=== PATIENT | male | born 2000 | race Caucasian/White ===

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

== ENCOUNTER 2022-09-07 20:14 | Emergency (ER) | payer MEDICAID ==
[2022-09-07] MEDS ORDERED: Sodium Chloride 0.9% 10 ML Syringe FLUSH PRN (20:33)
[2022-09-07] MEDS ORDERED: Sodium Chloride 0.9% 2.5 ML Syringe FLUSH PRN (20:33)
[2022-09-07 21:03] LABS: BASOPHILS PERCENT AUTO 0.2 % (0.0-1.5); EOSINOPHILS ABSOLUTE AUTO 0.1 K/uL (0.0-0.7); HEMATOCRIT 45.6 % (38.0-50.0); HEMOGLOBIN 16.5 g/dL (13.0-17.0); LYMPHOCYTES ABSOLUTE AUTO 3.5 K/uL (0.6-2.4); LYMPHOCYTES PERCENT AUTO 28.8 % (16.0-40.0); MEAN CORPUSCULAR HGB CONC 36.2 g/dL (31.0-37.0); MEAN CORPUSCULAR VOLUME 85.6 fL (80.0-98.0); MONOCYTES ABSOLUTE AUTO 0.7 K/uL (0.0-0.8); MONOCYTES PERCENT AUTO 5.4 % (0.0-15.0); NEUTROPHILS ABSOLUTE AUTO 7.8 K/uL (1.4-5.7); NEUTROPHILS PERCENT AUTO 64.6 % (48.0-80.0); NRBC ABSOLUTE 0 K/uL; PLATELET COUNT,PLT 227 K/uL (150-400); RED BLOOD CELL COUNT 5.33 M/uL (4.50-5.90); WHITE BLOOD CELL COUNT,WBC 12.01 K/uL (4.0-11.0)
[2022-09-07 21:16] LABS: INR 1.12 (0.86-1.11); PTT,PARTIAL THROMBOPLSTIN TIME 28.5 SEC (23.9-30.7)
[2022-09-07 21:23] LABS: A/G RATIO 1.5 (0.9-1.6); ACETAMINOPHEN <2.0 ug/mL; ALANINE AMINOTRANSFERASE,ALT 28 IU/L (14-63); ALBUMIN 4.6 g/dL (3.4-5.0); ALKALINE PHOSPHATASE 75 U/L (46-116); ASPARTATE AMNIOTRANSFERASE,AST 20 IU/L (15-37); BILIRUBIN TOTAL 0.5 mg/dL (0.2-1.0); BLOOD UREA NITROGEN,BUN 10 mg/dL (7.0-18.0); CALCIUM 8.8 mg/dL (8.5-10.1); CARBON DIOXIDE,CO2 29.3 mmol/L (21.0-32.0); CHLORIDE,CL 102 mmol/L (98-107); CREATININE 1.3 mg/dL (0.8-1.3); EST CRCL DRUG DOSING (CG) 96.54 mL/min; GLUCOSE RANDOM 111 mg/dL (74-106); POTASSIUM,K 3.5 mmol/L (3.5-5.1); PROTEIN TOTAL,TP 7.6 g/dL (6.4-8.2); SALICYLATE 0.4 mg/dL (0.0-20.0); SODIUM,NA 140 mmol/L (136-148)
[2022-09-07 21:24] LABS: ESTIMATED GFR 81 mL/min (>60)
[2022-09-07] MEDS ORDERED: Ketorolac 30 MG/ML SDV IM ONE (21:51)
[2022-09-07] MEDS ORDERED: Metoclopramide 10 MG/2 ML SDV IM ONE (21:51)
== END 2022-09-07 22:31 | disposition home or self-care (01) ==
LOC: MW.ED 20:14
DX: G44.89 Other headache syndrome (principal); R00.2 Palpitations
CPT/HCPCS: 36415; 80053; 80143; 80179; 85025; 85610; 85730; 93005; 96372; 99285; J1885; J2765; 93010; 99283

== ENCOUNTER 2022-09-10 09:14 | Emergency (ER) | payer MEDICAID ==
[2022-09-10 10:38] LABS: BASOPHILS PERCENT AUTO 0.2 % (0.0-1.5); EOSINOPHILS ABSOLUTE AUTO 0.1 K/uL (0.0-0.7); EOSINOPHILS PERCENT AUTO 0.6 % (0.0-7.0); HEMATOCRIT 49.8 % (38.0-50.0); LYMPHOCYTES ABSOLUTE AUTO 2.3 K/uL (0.6-2.4); LYMPHOCYTES PERCENT AUTO 14.1 % (16.0-40.0); MEAN CORPUSCULAR HEMOGLOBIN 30.9 pg (27.0-32.0); MEAN CORPUSCULAR HGB CONC 36.1 g/dL (31.0-37.0); MEAN CORPUSCULAR VOLUME 85.4 fL (80.0-98.0); MONOCYTES ABSOLUTE AUTO 0.7 K/uL (0.0-0.8); MONOCYTES PERCENT AUTO 4.4 % (0.0-15.0); NEUTROPHILS PERCENT AUTO 80.7 % (48.0-80.0); NRBC ABSOLUTE 0 K/uL; PLATELET COUNT,PLT 254 K/uL (150-400); RED BLOOD CELL COUNT 5.83 M/uL (4.50-5.90); WHITE BLOOD CELL COUNT,WBC 16.05 K/uL (4.0-11.0)
[2022-09-10 11:12] LABS: A/G RATIO 1.5 (0.9-1.6); ACETAMINOPHEN <2.0 ug/mL; ALANINE AMINOTRANSFERASE,ALT 34 IU/L (14-63); ALBUMIN 5.1 g/dL (3.4-5.0); ALKALINE PHOSPHATASE 68 U/L (46-116); ASPARTATE AMNIOTRANSFERASE,AST 22 IU/L (15-37); BLOOD UREA NITROGEN,BUN 16 mg/dL (7.0-18.0); CALCIUM 9.6 mg/dL (8.5-10.1); CARBON DIOXIDE,CO2 24.1 mmol/L (21.0-32.0); CHLORIDE,CL 102 mmol/L (98-107); CREATININE 1.1 mg/dL (0.8-1.3); EST CRCL DRUG DOSING (CG) 114.09 mL/min; ESTIMATED GFR 99 mL/min (>60); ETHANOL BLOOD MEDICAL < 3.0 mg/dL; GLUCOSE RANDOM 101 mg/dL (74-106); POTASSIUM,K 4.3 mmol/L (3.5-5.1); PROTEIN TOTAL,TP 8.5 g/dL (6.4-8.2); SALICYLATE <0.2 mg/dL (0.0-20.0); SODIUM,NA 139 mmol/L (136-148); TSH ULTRASENSITIVE 0.75 uIU/mL (0.36-3.74)
[2022-09-10] MEDS ORDERED: LORazepam 1 MG Tab PO ONE (11:12)
[2022-09-10 11:39] LABS: APPEARANCE,URINE CLEAR; BILIRUBIN,URINE NEGATIVE (NEGATIVE); COLOR,URINE YELLOW; GLUCOSE,URINE NEGATIVE (NEGATIVE); KETONES,URINE NEGATIVE (NEGATIVE); LEUKOCYTE ESTERASE,URINE NEGATIVE (NEGATIVE); NITRITE,URINE NEGATIVE (NEGATIVE); OCCULT BLOOD,URINE NEGATIVE (NEGATIVE); PROTEIN,URINE NEGATIVE (NEGATIVE); UROBILINOGEN,URINE 0.2 EU/dL (<2.0)
[2022-09-10 11:47] LABS: AMPHETAMINES SCREEN, URINE NEGATIVE (CUTOFF=500); BARBITURATE SCREEN,URINE NEGATIVE (CUTOFF=200); BENZODIAZEPINES SCREEN,URINE NEGATIVE (CUTOFF=150); BUPRENORPHINE SCREEN,URINE NEGATIVE (CUTOFF=10); METHADONE SCREEN, URINE NEGATIVE (CUTOFF=200); METHAMPHETAMINES SCREEN, URINE NEGATIVE (CUTOFF=500); OXYCODONE SCREEN,URINE NEGATIVE (CUT0FF=100); PCP SCREEN,URINE NEGATIVE (CUTOFF=25); PROPOXYPHENE SCREEN,URINE NEGATIVE (CUTOFF=300); THC SCREEN,URINE 20 NG/ML PRESUMPTIVE POSITIVE (CUTOFF=50)
== END 2022-09-10 19:30 ==
LOC: MW.ED 09:14
DX: F41.9 Anxiety disorder, unspecified (principal); R45.851 Suicidal ideations
CPT/HCPCS: 36415; 80053; 80143; 80179; 80305; 80307; 81003; 84443; 85025; 93005; 99285; A9270; 93010

== ENCOUNTER 2023-01-03 23:58 | Emergency (ER) | payer SELFPAY ==
[2023-01-04] MEDS ORDERED: Aspirin 81 MG Tab.Chew PO ONE (00:08)
[2023-01-04] MEDS ORDERED: LORazepam 0.5 MG Tab PO ONE (00:16)
[2023-01-04 00:29] LABS: BASOPHILS ABSOLUTE AUTO 0.05 K/uL (0.00-0.20); BASOPHILS PERCENT AUTO 0.6 % (0.0-1.0); EOSINOPHILS ABSOLUTE AUTO 0.22 K/uL (0.00-0.45); EOSINOPHILS PERCENT AUTO 2.5 % (0.0-6.0); HEMATOCRIT 43.9 % (42.0-52.0); HEMOGLOBIN 16.2 g/dL (14.0-18.0); IMMATURE GRAN ABSOLUTE AUTO 0.03 K/uL (0.00-0.05); IMMATURE GRAN PERCENT AUTO 0.3 % (0.0-0.4); LYMPHOCYTES ABSOLUTE AUTO 3.25 K/uL (1.00-4.80); LYMPHOCYTES PERCENT AUTO 37.6 % (24.0-44.0); MEAN CORPUSCULAR HEMOGLOBIN 31.2 pg (28.0-32.0); MEAN CORPUSCULAR HGB CONC 36.9 g/dL (32.0-36.0); MEAN CORPUSCULAR VOLUME 84.4 fL (83.0-99.0); MEAN PLATELET VOLUME 10.6 fL (9.4-12.4); MONOCYTES ABSOLUTE AUTO 0.54 K/uL (0.00-0.80); MONOCYTES PERCENT AUTO 6.2 % (0.0-8.0); NEUTROPHILS ABSOLUTE AUTO 4.6 K/uL (1.8-7.7); NEUTROPHILS PERCENT AUTO 52.8 % (41.0-71.0); PLATELET COUNT,PLT 229 K/uL (150-400); WHITE BLOOD CELL COUNT,WBC 8.65 K/uL (3.9-11.3)
[2023-01-04 00:58] LABS: A/G RATIO 1.3 (0.9-1.6); ALBUMIN 4.1 g/dL (3.4-5.0); BILIRUBIN TOTAL 0.6 mg/dL (0.2-1.0); CALCIUM 8.6 mg/dL (8.5-10.1); CARBON DIOXIDE,CO2 25.2 mmol/L (21.0-32.0); CREATININE 1.2 mg/dL (0.8-1.3); EST CRCL DRUG DOSING (CG) 104.58 mL/min; POTASSIUM,K 3.4 mmol/L (3.5-5.1); PROTEIN TOTAL,TP 7.2 g/dL (6.4-8.2)
== END 2023-01-04 02:40 | disposition home or self-care (01) ==
LOC: MW.ED 23:58
DX: R07.89 Other chest pain (principal); R00.2 Palpitations
CPT/HCPCS: 36415; 71045; 80053; 83690; 84484; 85025; 93005; 99285; A9270; 93010; 99283

== ENCOUNTER 2023-03-17 16:40 | Emergency (ER) | payer BC ==
[2023-03-17] MEDS ORDERED: Sodium Chloride 0.9% 1,000 ML IV ONE (17:11)
[2023-03-17] MEDS ORDERED: Ondansetron 4 MG/2 ML SDV IVPUSH ONE (17:11)
[2023-03-17] MEDS ORDERED: Ketorolac 30 MG/ML SDV IVPUSH ONE (17:17)
[2023-03-17 17:47] LABS: CORONAVIRUS COVID-19 NAA NEGATIVE (NEGATIVE); INFLUENZA A NAA NEGATIVE (NEGATIVE); INFLUENZA B NAA NEGATIVE (NEGATIVE); RESPIRATORY SYNCYTIAL VIR NAA NEGATIVE (NEGATIVE)
[2023-03-17 18:05] LABS: BASOPHILS ABSOLUTE AUTO 0.02 K/uL (0.00-0.20); BASOPHILS PERCENT AUTO 0.2 % (0.0-1.0); EOSINOPHILS ABSOLUTE AUTO 0.04 K/uL (0.00-0.45); EOSINOPHILS PERCENT AUTO 0.3 % (0.0-6.0); HEMOGLOBIN 16.8 g/dL (14.0-18.0); IMMATURE GRAN ABSOLUTE AUTO 0.05 K/uL (0.00-0.05); IMMATURE GRAN PERCENT AUTO 0.4 % (0.0-0.4); LYMPHOCYTES ABSOLUTE AUTO 0.53 K/uL (1.00-4.80); LYMPHOCYTES PERCENT AUTO 4.1 % (24.0-44.0); MEAN CORPUSCULAR HEMOGLOBIN 30.8 pg (28.0-32.0); MEAN CORPUSCULAR HGB CONC 37.3 g/dL (32.0-36.0); MEAN CORPUSCULAR VOLUME 82.4 fL (83.0-99.0); MEAN PLATELET VOLUME 11.1 fL (9.4-12.4); MONOCYTES ABSOLUTE AUTO 0.46 K/uL (0.00-0.80); MONOCYTES PERCENT AUTO 3.5 % (0.0-8.0); NEUTROPHILS ABSOLUTE AUTO 11.88 K/uL (1.80-7.70); NEUTROPHILS PERCENT AUTO 91.5 % (41.0-71.0); PLATELET COUNT,PLT 194 K/uL (150-400); RED BLOOD CELL COUNT 5.46 M/uL (4.52-5.90); WHITE BLOOD CELL COUNT,WBC 12.98 K/uL (3.9-11.3)
[2023-03-17 18:30] LABS: A/G RATIO 1.5 (0.9-1.6); ALANINE AMINOTRANSFERASE,ALT 35 IU/L (14-63); ALBUMIN 4.5 g/dL (3.4-5.0); ALKALINE PHOSPHATASE 73 U/L (46-116); ASPARTATE AMNIOTRANSFERASE,AST 28 IU/L (15-37); BILIRUBIN TOTAL 1.5 mg/dL (0.2-1.0); BLOOD UREA NITROGEN,BUN 18 mg/dL (7.0-18.0); CALCIUM 9.2 mg/dL (8.5-10.1); CARBON DIOXIDE,CO2 27.4 mmol/L (21.0-32.0); CHLORIDE,CL 103 mmol/L (98-107); CREATININE 1.3 mg/dL (0.8-1.3); EST CRCL DRUG DOSING (CG) 95.73 mL/min; GLUCOSE RANDOM 108 mg/dL (74-106); LIPASE 27 U/L (16-77); POTASSIUM,K 3.9 mmol/L (3.5-5.1); PROTEIN TOTAL,TP 7.6 g/dL (6.4-8.2); SODIUM,NA 139 mmol/L (136-148)
[2023-03-17 18:31] LABS: ESTIMATED GFR 80 mL/min (>60)
[2023-03-17] MEDS ORDERED: Iopamidol 755 MG/ML 500 ML Multipack Bottle IVPUSH STA (18:45)
[2023-03-17 18:52] LABS: BILIRUBIN,URINE NEGATIVE (NEGATIVE); GLUCOSE,URINE NEGATIVE (NEGATIVE); KETONES,URINE TRACE mg/dL (NEGATIVE); LEUKOCYTE ESTERASE,URINE NEGATIVE (NEGATIVE); NITRITE,URINE NEGATIVE (NEGATIVE); OCCULT BLOOD,URINE NEGATIVE (NEGATIVE); PH,URINE 8.5 (5.0-8.0); PROTEIN,URINE 30 mg/dL (NEGATIVE); UROBILINOGEN,URINE 0.2 EU/dL (<2.0)
[2023-03-17 18:57] LABS: APPEARANCE,URINE SLT CLOUDY; COLOR,URINE DARK YELLOW
[2023-03-17 19:00] LABS: BACTERIA,URINE RARE (NEGATIVE); EPITHELIAL CELLS,URINE RARE (NONE-FEW); RBC,URINE 0-1 (0-2/HPF); WBC,URINE 0-2 (0-5/HPF)
== END 2023-03-17 20:37 | disposition home or self-care (01) ==
LOC: MW.ED 16:40
DX: R07.9 Chest pain, unspecified (principal); R10.9 Unspecified abdominal pain; F17.210 Nicotine dependence, cigarettes, uncomplicated; Z79.899 Other long term (current) drug therapy; Z20.822 Contact with and (suspected) exposure to COVID-19
CPT/HCPCS: 0241U; 36415; 71045; 74177; 80053; 81001; 83690; 84484; 85025; 93005; 96361; 96374; 96375; 99285; J1885; J2405; J7030; Q9967; 93010; 99284

== ENCOUNTER 2023-04-20 07:50 | Emergency (ER) | payer BC ==
[2023-04-20] MEDS ORDERED: Sodium Chloride 0.9% 1,000 ML IV ONE (08:08)
[2023-04-20 08:48] LABS: BASOPHILS ABSOLUTE AUTO 0.02 K/uL (0.00-0.20); BASOPHILS PERCENT AUTO 0.4 % (0.0-1.0); EOSINOPHILS ABSOLUTE AUTO 0.19 K/uL (0.00-0.45); EOSINOPHILS PERCENT AUTO 3.5 % (0.0-6.0); HEMATOCRIT 44.3 % (42.0-52.0); HEMOGLOBIN 16.1 g/dL (14.0-18.0); IMMATURE GRAN ABSOLUTE AUTO 0.01 K/uL (0.00-0.05); IMMATURE GRAN PERCENT AUTO 0.2 % (0.0-0.4); LYMPHOCYTES ABSOLUTE AUTO 2.02 K/uL (1.00-4.80); LYMPHOCYTES PERCENT AUTO 36.9 % (24.0-44.0); MEAN CORPUSCULAR HEMOGLOBIN 30.6 pg (28.0-32.0); MEAN CORPUSCULAR HGB CONC 36.3 g/dL (32.0-36.0); MEAN CORPUSCULAR VOLUME 84.1 fL (83.0-99.0); MEAN PLATELET VOLUME 10.7 fL (9.4-12.4); MONOCYTES ABSOLUTE AUTO 0.22 K/uL (0.00-0.80); NEUTROPHILS ABSOLUTE AUTO 3.01 K/uL (1.80-7.70); PLATELET COUNT,PLT 231 K/uL (150-400); RED BLOOD CELL COUNT 5.27 M/uL (4.52-5.90); WHITE BLOOD CELL COUNT,WBC 5.47 K/uL (3.9-11.3)
[2023-04-20 09:02] LABS: INR 1.23 (0.86-1.11); PTT,PARTIAL THROMBOPLSTIN TIME 35.8 SEC (23.9-30.7)
[2023-04-20 09:20] LABS: A/G RATIO 1.3 (0.9-1.6); ALBUMIN 4.3 g/dL (3.4-5.0); BILIRUBIN TOTAL 1.2 mg/dL (0.2-1.0); CALCIUM 9.4 mg/dL (8.5-10.1); CARBON DIOXIDE,CO2 26.4 mmol/L (21.0-32.0); CREATININE 1.2 mg/dL (0.8-1.3); EST CRCL DRUG DOSING (CG) 103.71 mL/min; POTASSIUM,K 4.2 mmol/L (3.5-5.1); PROTEIN TOTAL,TP 7.6 g/dL (6.4-8.2); TSH ULTRASENSITIVE 1.07 uIU/mL (0.36-3.74)
== END 2023-04-20 13:30 | disposition home or self-care (01) ==
LOC: MW.ED 07:50
DX: R07.2 Precordial pain (principal); R00.2 Palpitations
CPT/HCPCS: 36415; 71045; 80053; 83735; 84443; 84484; 85025; 85610; 85730; 93005; 93246; 96360; 99285; J7030; 93010; 99282

== ENCOUNTER 2023-05-07 22:38 | Emergency (ER) | payer SELFPAY ==
[2023-05-08 02:30] LABS: C. TRACHOMATIS BY PCR NOT DETECTED; N. GONORRHOEAE BY PCR NOT DETECTED
== END 2023-05-08 02:54 | disposition home or self-care (01) ==
LOC: MW.ED 22:38
DX: S00.31XA Abrasion of nose, initial encounter (principal); S09.90XA Unspecified injury of head, initial encounter; R04.0 Epistaxis; F17.210 Nicotine dependence, cigarettes, uncomplicated; W50.0XXA Accidental hit or strike by another person, initial encounter
CPT/HCPCS: 70450; 70450-26; 70486; 70486-26; 87491; 87591; 99282; 99284

== ENCOUNTER 2024-03-25 06:39 | Day surgery (SDC) | payer SELFPAY ==
[2024-03-25] MEDS: Lactated Ringers 1,000 ML IV SCH (07:02)
[2024-03-25] MEDS ORDERED: Lidocaine 1% 20 ML MDV ONE (07:18)
[2024-03-25] MEDS ORDERED: Bupivacaine 0.5% 30 ML SDV ONE (07:18)
[2024-03-25] MEDS ORDERED: Bacitracin Oint 28.35 GM Tube ONE (07:18)
[2024-03-25] MEDS ORDERED: Phenylephrine HCl In 0.9% NaCl 1 MG/10 ML Syringe IVPUSH PRN (07:23)
[2024-03-25] MEDS ORDERED: Metoclopramide 10 MG/2 ML SDV IVPUSH PRN (07:23)
[2024-03-25] MEDS ORDERED: Albuterol 0.083% 2.5 MG/3 ML Neb Soln NEB PRN (07:23)
[2024-03-25] MEDS ORDERED: fentaNYL 50 MCG/ML SDV IVPUSH PRN (07:23)
[2024-03-25] MEDS ORDERED: Naloxone 0.4 MG/ML SDV IVPUSH PRN (07:23)
[2024-03-25] MEDS ORDERED: Morphine 2 MG/ML SYRINGE IVPUSH PRN (07:23)
[2024-03-25] MEDS ORDERED: Ondansetron 4 MG/2 ML SDV IVPUSH PRN (07:23)
[2024-03-25] MEDS ORDERED: HYDROmorphone 1 MG/ML Syringe IVPUSH PRN (07:23)
[2024-03-25] MEDS ORDERED: fentaNYL 100 MCG/2 ML SDV ONE (07:36)
[2024-03-25] MEDS ORDERED: propofoL 500 MG/50 ML 50 ML ONE (07:36)
[2024-03-25] MEDS ORDERED: Water For Injection, Sterile 20 ML ONE (07:41)
[2024-03-25] MEDS ORDERED: dexmedeTOMIDine HCl 200 MCG/2 ML SDV ONE (07:41)
[2024-03-25] MEDS ORDERED: Ketorolac 30 MG/ML SDV ONE (08:11)
[2024-03-25] MEDS ORDERED: Acetaminophen/HYDROcodone 325-5 MG Tab PO PRN (08:41)
[2024-03-25] MEDS ORDERED: Lactated Ringers 1,000 ML IV SCH (08:45)
== END 2024-03-25 09:25 | disposition home or self-care (01) ==
LOC: MW.SDS 06:39
PROVIDERS: ATTEND Surgery
DX: L72.0 Epidermal cyst (principal); F41.9 Anxiety disorder, unspecified; K21.9 Gastro-esophageal reflux disease without esophagitis; Z83.3 Family history of diabetes mellitus; F17.290 Nicotine dependence, other tobacco product, uncomplicated; Z79.899 Other long term (current) drug therapy
CPT/HCPCS: 27327; J0665; J1885; J2704; J3010; J7120; 00400; A9270-GY; J3490

== ENCOUNTER 2025-01-21 03:06 | Emergency (ER) | payer SELFPAY ==
[2025-01-21 04:30] LABS: BASOPHILS ABSOLUTE AUTO 0.04 K/uL (0.00-0.20); BASOPHILS PERCENT AUTO 0.7 % (0.0-1.0); EOSINOPHILS ABSOLUTE AUTO 0.31 K/uL (0.00-0.45); EOSINOPHILS PERCENT AUTO 5.2 % (0.0-6.0); IMMATURE GRAN ABSOLUTE AUTO 0.02 K/uL (0.00-0.05); IMMATURE GRAN PERCENT AUTO 0.3 % (0.0-0.4); LYMPHOCYTES ABSOLUTE AUTO 2.55 K/uL (1.00-4.80); LYMPHOCYTES PERCENT AUTO 42.6 % (24.0-44.0); MEAN PLATELET VOLUME 10.3 fL (9.4-12.4); MONOCYTES ABSOLUTE AUTO 0.41 K/uL (0.00-0.80); MONOCYTES PERCENT AUTO 6.8 % (0.0-8.0); NEUTROPHILS ABSOLUTE AUTO 2.66 K/uL (1.80-7.70); NEUTROPHILS PERCENT AUTO 44.4 % (41.0-71.0); NRBC ABSOLUTE 0.00 K/uL (0.00-0.02); NRBC PERCENT 0.0 /100WBC (0.0-0.2); PLATELET COUNT,PLT 238 K/uL (150-400); RED BLOOD CELL COUNT 5.24 M/uL (4.52-5.90); WHITE BLOOD CELL COUNT,WBC 5.99 K/uL (3.9-11.3)
[2025-01-21 04:57] LABS: A/G RATIO 1.6 (0.9-1.6); ALANINE AMINOTRANSFERASE,ALT 75.0 IU/L (14-63); ASPARTATE AMNIOTRANSFERASE,AST 43.0 IU/L (15-37); BILIRUBIN TOTAL 1.3 mg/dL (0.2-1.0); BLOOD UREA NITROGEN,BUN 22.0 mg/dL (7.0-18.0); CARBON DIOXIDE,CO2 30.0 mmol/L (21.0-32.0); CHLORIDE,CL 103.0 mmol/L (98-107); CREATININE 1.2 mg/dL (0.8-1.3); EST CRCL DRUG DOSING (CG) 101.97 mL/min; GLUCOSE RANDOM 110.0 mg/dL (74-106); POTASSIUM,K 3.8 mmol/L (3.5-5.1); PROTEIN TOTAL,TP 7.8 g/dL (6.4-8.2); SODIUM,NA 139.0 mmol/L (136-148)
[2025-01-21 04:59] LABS: ESTIMATED GFR 87.0 mL/min (>60)
== END 2025-01-21 05:29 | disposition home or self-care (01) ==
LOC: MW.ED 03:06
DX: G51.31 Clonic hemifacial spasm, right (principal); R03.0 Elevated blood-pressure reading, without diagnosis of hypertension; Z79.899 Other long term (current) drug therapy
CPT/HCPCS: 36415; 80053; 83735; 85025; 85652; 99283; 99284